=== PATIENT | male | born 1950 | race Caucasian/White ===

== ENCOUNTER 2022-09-08 08:27 | Day surgery (SDC) | payer MEDICARE, OTHER ==
[~2022-09-08 08:27] MED LIST: Lactated Ringers 1,000 ML IV SCH
[2022-09-08] MEDS ORDERED: Propofol 200 MG/20 ML SDV ONE ×2 (09:52→10:20)
[2022-09-08] MEDS ORDERED: fentaNYL 100 MCG/2 ML SDV ONE (09:52)
== END 2022-09-08 12:20 | disposition home or self-care (01) ==
LOC: VM.SDS 08:27
PROVIDERS: ATTEND Family Medicine
DX: D12.0 Benign neoplasm of cecum (principal); K63.5 Polyp of colon; K57.30 Diverticulosis of large intestine without perforation or abscess without bleeding; K64.9 Unspecified hemorrhoids; E78.00 Pure hypercholesterolemia, unspecified; J43.2 Centrilobular emphysema; I65.23 Occlusion and stenosis of bilateral carotid arteries; H33.21 Serous retinal detachment, right eye; F17.210 Nicotine dependence, cigarettes, uncomplicated; Z98.49 Cataract extraction status, unspecified eye
CPT/HCPCS: 00811; 88305; J2704; J3010; J7120